=== PATIENT | male | born 1960 | race Caucasian/White ===

== ENCOUNTER 2017-02-28 03:56 | Emergency (ER) | payer MEDICAID ==
--- NOTE | 2017-02-28 04:10 | EDM.PDOC ---
ED HPI GENERAL MEDICAL PROBLEM - General Stated Complaint: LOW BLOOD SUGAR Time Seen by Provider: 02/28/17 04:09 Source of Information: Reports: Patient History Limitations: Reports: No Limitations - History of Present Illness INITIAL COMMENTS - FREE TEXT/NARRATIVE: 56 yo gentleman with past medical history significant for T2DM, HTN, HLD as well as other medical problems listed in his chart. Patient is here visiting and has not been taking his medications. Notes that his blood sugar has been running high. He also has h/o peripheral neuropathy and reports that he takes gabapentin. Was brought to the ER after he was found wondering around -- not confused and seems in need of help. Reported that his blood sugar has been high and was brought to the ER for further evaluation. No chest pain, SOB, nausea, vomiting or abdominal pain. Onset: Today Improves with: Reports: None Worsens with: Reports: None Associated Symptoms: Reports: Weakness - Related Data Home Meds: Home Meds Gabapentin [Neurontin] 300 mg PO BID 02/28/17 [History] Insulin Glarg,Human.Rec.Analog [LantUS Solostar] 12 unit SQ BID 02/28/17 [ History] metFORMIN [Glucophage] 500 mg PO BIDMEALS 02/28/17 [History] traMADol [Ultram] 50 mg PO Q6H PRN 02/28/17 [History] ED ROS GENERAL - Review of Systems Review Of Systems: ROS reveals no pertinent complaints other than HPI. ED EXAM, GENERAL - Physical Exam Exam: See Below Exam Limited By: No Limitations General Appearance: Alert, WD/WN, No Apparent Distress Eye Exam: Bilateral Eye: EOMI, PERRL Ears: Normal External Exam, Normal Canal, Hearing Grossly Normal, Normal TMs Nose: Normal Inspection, Normal Mucosa Throat/Mouth: Normal Inspection, Normal Lips, Normal Oropharynx Head: Atraumatic, Normocephalic Neck: Normal Inspection, Supple, Non-Tender, Full Range of Motion Respiratory/Chest: No Respiratory Distress, Lungs Clear, Normal Breath Sounds, No Accessory Muscle Use Cardiovascular: Normal Peripheral Pulses, Regular Rate, Rhythm, No Edema GI/Abdominal: Normal Bowel Sounds, Soft, Non-Tender, No Organomegaly, No Distention Back Exam: Normal Inspection, Full Range of Motion Extremities: Normal Inspection, Normal Range of Motion, Non-Tender, No Pedal Edema, Normal Capillary Refill Neurological: Alert, Oriented, CN II-XII Intact, Normal Cognition Psychiatric: Normal Affect, Normal Mood Skin Exam: Warm, Dry Lymphatic: No Adenopathy Course - Vital Signs Last Recorded V/S: Last Vital Signs Temp 36.8 C 02/28/17 04:11 Pulse 87 02/28/17 04:11 Resp 18 02/28/17 04:11 BP 133/105 H 02/28/17 04:11 Pulse Ox 100 02/28/17 04:11 - Orders/Labs/Meds Labs: Laboratory Tests 02/28/17 Range/Units 04:03 POC Glucose 376 H (80-116) mg/dL Meds: Medications Discontinued Medications Generic Name Dose Route Start Last Admin Trade Name Freq PRN Reason Stop Dose Admin Insulin Human Regular 8 unit 02/28/17 04:15 Humulin R SUBCUT .ONCE SALOMON Protocol Departure - Departure Time of Disposition: 05:00 Disposition: Against Medical Advice 07 Clinical Impression: Hyperglycemia - Discharge Information Referrals: PCP,None [Primary Care Provider] - Forms: ED Department Discharge
[2017-02-28] MEDS ORDERED: Insulin Regular, Human 100 Units/ML 3 ML Vial SUBCUT SCH (04:15)
== END 2017-02-28 04:30 | disposition left against medical advice (07) ==
LOC: FB.ED 03:56
DX: E11.65 Type 2 diabetes mellitus with hyperglycemia (principal); I10 Essential (primary) hypertension; E78.5 Hyperlipidemia, unspecified; Z79.4 Long term (current) use of insulin; E11.42 Type 2 diabetes mellitus with diabetic polyneuropathy; Z79.899 Other long term (current) drug therapy
CPT/HCPCS: 82962; 99284